=== PATIENT | female | born 1930 | race Caucasian/White ===

== ENCOUNTER → 2016-10-29 | Outpatient (CLI) | payer MEDICARE, OTHER ==
--- NOTE | 2016-10-29 13:04 | KCIC ---
Thoracic x-rays INDICATION: Back pain across chest. COMPARISON: None TECHNIQUE: 3 views of the thoracic spine FINDINGS: Thoracic spine is in normal anatomic alignment. No compression deformities. Large osteophytes are seen in the midthoracic spine with endplate sclerosis and significant loss of intervertebral disc height suggesting multilevel degenerative disc disease. Also noted are similar changes in the lower cervical spine. Heart is mildly enlarged in size. Visualized lungs are clear. IMPRESSION: Moderate to severe multilevel degenerative disc disease in the mid to lower thoracic spine. Electronically signed by: Claudio Kennedy DO (10/29/2016 1:00 PM) [place] [id number]
== END | disposition home or self-care (01) ==
LOC: KCIC 12:14
PROVIDERS: ATTEND Family Medicine
DX: M51.34 Other intervertebral disc degeneration, thoracic region (principal)
CPT/HCPCS: 72072

== ENCOUNTER → 2017-02-06 | Outpatient (CLI) | payer MEDICARE, OTHER ==
--- NOTE | 2017-02-06 14:35 | KCIC ---
INDICATION: Bilateral arm pain. Pain across back and breasts. Dizziness when standing. Neck pain extending to base of skull. TECHNIQUE: Sagittal T1, sagittal T2, sagittal STIR, axial T2, and axial T2 gradient sequences are provided. There is mild motion degradation. No comparison is available. FINDINGS: There is 2 mm of anterolisthesis at C3-C4. There is 2 mm of retrolisthesis at C6-C7. There is straightening of cervical lordosis. There is fatty replacement the endplates at several levels. There is mild edema in the endplates at C4-C5 and C5-C6. There is STIR hyperintensity in the cord at C6-C7 and at the level of C7. This is difficult to confirm on the axial series but believed to be a true finding. Mild cord hyperintensity at C3-C4 also is believed to be a true finding. Cervicomedullary junction is unremarkable. Allowing for motion degradation, degenerative findings will be estimated below: C2-C3: There is a small central protrusion. There is facet hypertrophy. There is no canal or foraminal compromise. C3-C4: There is a disc osteophyte complex and uncinate process spurring. There is mild canal stenosis, midline AP diameter 9 mm. Foraminal narrowing is probably mild to moderate on the left and moderate to severe on the right. C4-C5: There is a disc osteophyte complex and uncinate process spurring. There is mild to moderate canal stenosis and foraminal narrowing bilaterally appears at least moderate. Midline AP diameter of the thecal sac is 8 mm. C5-C6: There is a disc osteophyte complex. There is uncinate process spurring which is bilateral but greater on the right. There is mild to moderate canal stenosis, midline AP diameter of the thecal sac 8 mm. There is [id number] bilateral foraminal narrowing. C6-C7: Disc osteophyte complex is noted. Uncinate process spurring is much greater on the left. Midline AP diameter of the thecal sac is narrowed to 7-8 mm, moderate. Foraminal narrowing appears high-grade and greater on the left. C7-T1: Disc bulge and facet hypertrophy are noted, there may be mild foraminal narrowing. IMPRESSION: 1. Multilevel degenerative changes in the cervical spine. Several levels of canal stenosis and foraminal narrowing, as estimated above. 2. Areas of cord hyperintensity at C6-C7 and C3-C4 may represent edema or myelomalacia. 3. Mild motion degradation. Electronically signed by: Saturnino Whitman MD (02/06/2017 2:32 PM) [id number]
== END | disposition home or self-care (01) ==
LOC: KCIC MRI 12:25
PROVIDERS: ATTEND Family Medicine
DX: M48.02 Spinal stenosis, cervical region (principal); M50.21 Other cervical disc displacement, high cervical region; M25.78 Osteophyte, vertebrae; R42 Dizziness and giddiness; M79.601 Pain in right arm; M79.602 Pain in left arm
CPT/HCPCS: 72141

== ENCOUNTER → 2018-08-18 | Outpatient (CLI) | payer MEDICARE, OTHER ==
--- NOTE | 2018-08-18 14:09 | KCIC ---
MRI Lumbar Spine without contrast History: Radicular leg pain, chronic low back pain into the right lower extremity Technique: Multiplanar, multi sequential noncontrast MR imaging was performed of the lumbar spine. Comparison: None Findings: There is some motion degradation. Lumbar vertebral body stature is maintained. There is grade 1 anterior spondylolisthesis L4-5 and L3-4 and to lesser degree at L2-3. There is fairly advanced degenerative disc disease L2-3 and L3-4 and to a somewhat lesser degree at L4-5, minimally at L5-S1 and L1-2. There is focus of marrow signal abnormality of the T12 vertebral body hyperintense on T2 and STIR sequences, partially hyperintense on the T1 sequence, greatest dimension about 1.2 cm CC by 1.2 cm AP by 1 cm transverse. There is degenerative endplate change L2-3 and L3-4, very minimally L1-2 and L4-5. Conus terminates at L1-L2. There is nonspecific edema of the posterior subcutaneous fat of the lower back, no focal fluid collection. There is very mild dextroscoliosis of lumbar spine. T10-11: This level was not included on the axial images. Facet degenerative change contributes to likely mild right and possible moderate left neural foramina compromise. There is a shallow posterior protrusion at this level slightly indenting the ventral thecal sac. T11-12: Spinal canal and neural foramina are adequate. There is buckling of the ligamentum flavum greater on the right. There is facet degenerative change. T12-L1: There is facet degenerative change. Neural foramina and spinal canal are adequate. L1-L2: There is broad posterior bulge. There is mild to moderate buckling of the ligament flavum and facet degenerative change. There is mild narrowing of the far lateral recesses greater on the left. Neural foramina are not significantly narrowed. L2-L3: There is some buckling of the nerve roots at the L2 level. There is bulge/broad protrusion. There is moderate buckling of the ligamentum flavum and facet hypertrophic change. There is mild prominence of posterior epidural fat centrally. Combination of findings results in mild to moderate spinal stenosis, left greater than right lateral recess stenosis, some preserved subarachnoid space. There is mild narrowing greater distally of the right neural foramen in part by disc osteophyte complex, mild to moderate narrowing on the left. L3-L4: There is severe facet degenerative change and moderate buckling of the ligamentum flavum. There is mild prominence of posterior epidural fat centrally. There is mild partial uncovering of the posterior aspect of the disc and superimposed broad posterior bulge. Combination of findings results in fairly severe spinal stenosis, lateral recess stenosis bilaterally with contact descending L4 nerve roots, limited preserved central subarachnoid space. There is buckling of the nerve roots above this level. There is moderate to severe narrowing of the left neural foramen with contact exiting left L3 nerve root, mild overall narrowing on the right. L4-L5: There is moderate to severe facet degenerative change, also fairly severe buckling of the ligamentum flavum greater on the left. There is partial uncovering of the posterior aspect of the disc due to spondylolisthesis. There is fairly severe narrowing of the left lateral recess with contact descending left L5 nerve root, moderate narrowing of the central canal and mild narrowing of the right lateral recess. There is mild left and moderate right neural foramina compromise with contact undersurface exiting L4 nerve roots greater on the right. L5-S1: There is mild to moderate right and minimal left facet degenerative change. There is minimal buckling of the ligamentum flavum. Spinal canal is overall adequate. Neural foramina are adequate. Impression: 1. There is fairly severe spinal stenosis L3-4, lateral recess stenosis bilaterally with contact descending L4 nerve roots. There is a lesser degree of left lateral recess and central canal stenosis at L4-5, also mild to moderate spinal stenosis with lateral recess stenosis bilaterally at L2-3 as described. 2. There is moderate to severe narrowing of the left L3-4 neural foramen, moderate narrowing on the right at L4-5 and on the left at L2-3, lesser degree of narrowing at other levels as described. 3. There is multilevel degenerative disc disease greatest L2-3 through L4-5. There is multilevel mild abnormal alignment as stated, multilevel facet degenerative change. 4. There is a focus of nonspecific signal abnormality of the T12 vertebral body, somewhat atypical hemangioma favored especially if there is no history or suspicion for malignancy. Electronically signed by: Oiv Sweeney MD (08/18/2018 2:06 PM) [id number]
== END | disposition home or self-care (01) ==
LOC: KCIC MRI 12:30
PROVIDERS: ATTEND Family Medicine
DX: M51.16 Intervertebral disc disorders with radiculopathy, lumbar region (principal); M43.16 Spondylolisthesis, lumbar region; M51.24 Other intervertebral disc displacement, thoracic region; M48.061 Spinal stenosis, lumbar region without neurogenic claudication; M47.26 Other spondylosis with radiculopathy, lumbar region; M47.818 Spondylosis without myelopathy or radiculopathy, sacral and sacrococcygeal region; M51.37 Other intervertebral disc degeneration, lumbosacral region; M89.38 Hypertrophy of bone, other site; M25.78 Osteophyte, vertebrae; D18.09 Hemangioma of other sites; G89.29 Other chronic pain
CPT/HCPCS: 72148

== ENCOUNTER → 2018-10-07 | Outpatient (CLI) | payer MEDICARE, OTHER ==
[~2018-10-07] MED LIST: BENA1TAB6 PO; CELE200C PO; CYAN-25 PO; GABA-585 PO; GABA-689 PO; IOHEXOL 180 MG/ML 10 ML VIAL. ONE; methylPREDNISolone ACETATE 40 MG/ML VIAL. ONE; methylPREDNISolone ACETATE 80 MG/ML VIAL. ONE
--- NOTE | 2018-10-07 22:55 | PAIN ---
DATE OF SERVICE: 10/07/2018 INITIAL CONSULTATION FOR PAIN CLINIC CHIEF COMPLAINT: Low back and right greater than left lower extremity pain. HISTORY OF PRESENT ILLNESS: This is an 87-year-old female who presents with history of pain in the low back for about 9 months, not a result of any specific injury or action that she is aware of, but it has been painful and feels that she is off balance significantly secondary to weakness in her legs, especially on the right side. The patient reports it is worse with walking, standing, changing positions, worse with getting up from a sitting position, better with sitting or lying down, does not hurt much when she is sitting or lying down, does not awaken her from sleep at night, does not affect her bowel or bladder control, but does affect her ability to walk fairly significantly. She is using a cane to ambulate. The patient reports still some significant loss of balance and instability feeling when she is walking, especially in the right leg. The patient reports a creepy, crawly sensation as well. The patient describes the pain as sharp and shooting in the back, numbness and radiating pain in the legs, intermittent in intensity, but always present when she is on her feet. The patient did have MRI scan of the lumbar spine showing a fairly severe spinal stenosis at L3-L4, lateral recess stenosis bilaterally contacted any L4 nerve roots, less severe left lateral recess and central canal stenosis at L4-L5 with [id number] spinal stenosis and lateral recess stenosis bilaterally at L2-3. PAST MEDICAL HISTORY: Significant for type 2 diabetes, non-insulin dependent; hearing loss; cataracts; skin cancer; dizziness; headaches; arthritis. PREVIOUS SURGERY: Includes skin cancer excisions and cataract extractions. CURRENT MEDICATIONS: Include insulin, benazepril, vitamin B12, gabapentin, and Celebrex. ALLERGIES: The patient has no known drug allergies. FAMILY HISTORY: Significant for high blood pressure and diabetes. SOCIAL HISTORY: The patient does not smoke, does not drink alcohol, does not use any illegal, illicit or recreational drugs. Lives locally in [place] and is currently retired. REVIEW OF SYSTEMS: The patient's review of systems is positive for those items mentioned in history of present illness. All systems reviewed and otherwise negative. It is complete, full and well documented on the patient's chart. PHYSICAL EXAMINATION: VITAL SIGNS: The patient's blood pressure is 171/77, pulse 73, respirations 18, temperature 97.4 degrees Fahrenheit, 4 feet and 8 inches, weight is 182 pounds stated. GENERAL: The patient is awake, alert, oriented, appropriate, very pleasant demeanor. HEENT: Shows normocephalic, atraumatic. Extraocular movements are intact and symmetrical. Oral cavity: Mucous membranes moist and pink. Dentition is intact. NECK: Shows anterior throat supple without palpable lymphadenopathy noted. Swallow reflex is symmetrical. CHEST: Shows normal on inspection. Breath sounds clear to auscultation bilaterally. HEART: Shows S1, S2 clear. No murmurs auscultated. ABDOMEN: Soft, nontender, nondistended. No palpable organomegaly is noted. No rebound or guarding demonstrated. BACK: Shows spine grossly in the midline. Normal appearing thoracic kyphosis and some minor flattening of lordotic curvature. Lumbar paraspinous muscle shows symmetrical on inspection, on palpation shows some moderate tenderness throughout the upper, middle and lower distribution of the paraspinous musculature diffusely without specific radiation or trigger points. The patient shows no specific tenderness with palpation over the spinous processes or the sacroiliac regions bilaterally. The patient has good rotational motion of lumbar spine, greater than 10 degrees right and left as well as extension greater than 10 degrees, forward flexion at 40 degrees without significant increase in pain. EXTREMITIES: The patient's lower extremities show deep tendon reflexes 1+ and the patellar and tendo calcaneus tendons are equal. Motor exam is approximately 4 on a scale of 5, but symmetrical with dorsiflexion, extension, right and left, as well as quadriceps and hamstring flexion, right and left. Peripheral pulses are 1+ posterior tibial. No peripheral edema is noted. The patient's straight leg raise is noted to be positive bilaterally at about 35-40 degrees with some pain in the low back into the posterior lateral thigh, worse on the right than the left, but present bilaterally with straight leg raise. Gaenslen's and Bala's maneuvers are grossly negative bilaterally. The patient is able to stand and requires some assistance with getting up from the chair using a cane in her right hand, which she ambulates, has a significant favoring limp gait favoring the right lower extremity. SKIN: The patient's skin shows warm and dry, good turgor. No edema. No sores, rashes or bruising throughout. IMPRESSION: 1. This is an 87-year-old female with approximate 9-month history of increasing pain, low back, right greater than left lower extremity in a radicular fashion. 2. MRI scan of the lumbar spine is noted. 3. Arthritis. 4. History of skin cancer. 5. Diabetes. PLAN: Options were discussed with the patient including conservative medical management, physical therapy, interventional techniques. She would like to pursue interventional techniques. We discussed a lumbar epidural steroid injection using description as well as anatomical models to describe the procedure. Risks were then discussed including, but not limited to bleeding, infection, possibility of epidural hematoma, subsequent neurological compromise, dural puncture, headaches, spinal cord and/or nerve damage, side effects of steroid medication and poor results regarding pain control. The patient understands and wished to proceed. The patient will return to clinic in approximately 2 weeks for followup. She was counseled on return appointment, activity level and side effects to be aware of. DIAGNOSES: Lumbar radiculopathy with lumbar degenerative disk disease and lumbar spinal stenosis. PROCEDURE: Lumbar epidural steroid injection, translaminar approach at L4-L5 level using C-arm fluoroscopic guidance under sterile prep and drape using local anesthetic. MEDICATION INJECTED: A total of 120 mg Depo-Medrol plus 10 mL of preservative-free normal saline and 2 mL of contrast. CONDITION AT DISCHARGE: Stable. The patient tolerated the procedure well, had no complications. JMAES TORO MD DR: ANUJ/uyen JOB#: [id number] / [id number]
== END ==
LOC: PNCL 10:47
PROVIDERS: ATTEND Anesthesiology
DX: M51.16 Intervertebral disc disorders with radiculopathy, lumbar region (principal); M48.061 Spinal stenosis, lumbar region without neurogenic claudication; E11.9 Type 2 diabetes mellitus without complications; Z85.828 Personal history of other malignant neoplasm of skin; Z98.42 Cataract extraction status, left eye; Z98.41 Cataract extraction status, right eye; Z98.890 Other specified postprocedural states; Z79.84 Long term (current) use of oral hypoglycemic drugs; Z96.1 Presence of intraocular lens
CPT/HCPCS: 62323; J1030; J1040; Q9965

== ENCOUNTER → 2018-10-22 | Outpatient (CLI) | payer MEDICARE, OTHER ==
[~2018-10-22] MED LIST changes: -IOHEXOL 180 MG/ML 10 ML VIAL. ONE; -methylPREDNISolone ACETATE 40 MG/ML VIAL. ONE; -methylPREDNISolone ACETATE 80 MG/ML VIAL. ONE
--- NOTE | 2018-10-23 01:52 | PAIN ---
DATE OF SERVICE: 10/22/2018 PROGRESS NOTE FOR PAIN CLINIC DIAGNOSES: Lumbar radiculopathy with lumbar degenerative disk disease and lumbar spinal stenosis. HISTORY OF PRESENT ILLNESS: The patient is an 87-year-old female who returns for followup status post lumbar epidural steroid injection x 1. The patient reports about 75% improvement in the pain in her low back and bilateral lower extremities, right greater than left. The patient reports still some pain in her right leg, but only very minimal and the only time she has had pain essentially is when she wakes up in the morning for the first 30 minutes when she is up and around a bit. The patient reports otherwise she is doing very well, has increased her activity, greater distance walking, doing household activities, traveling with greater ease and comfort. The patient reports it awakens her from sleep rarely, very much decreased pain with sitting or lying down, walking and standing. She is able to perform much better, much more successfully and much more comfortably. The patient reports the pain is a 7 on a scale of 10 at its worst in the past week, 5 on average, 5 at its least and is a 5 today. The patient reports it is stabbing pain that is there usually just in the morning. The patient reports no new motor or sensory deficits, no new bowel or bladder incontinence or other complaints. PHYSICAL EXAMINATION: VITAL SIGNS: The patient's blood pressure is 122/46, pulse 87, respirations 18, temperature 98.2 degrees Fahrenheit, height is 4 feet 8 inches, weight is 182 pounds. GENERAL: The patient is awake, alert, oriented, appropriate, very pleasant demeanor. HEENT: Shows normocephalic, atraumatic. Extraocular movements are intact and symmetrical. The patient wears eye glasses. Oral cavity: Mucous membranes moist and pink. Dentition is intact. NECK: Shows anterior throat supple without palpable lymphadenopathy noted. Swallow reflex symmetrical. CHEST: Shows normal on inspection. Breath sounds are clear bilaterally. BACK: Shows spine grossly in the midline. Lumbar paraspinous muscle shows symmetrical on inspection, on palpation shows some moderate tenderness, but only diffusely in the middle and lower distribution of paraspinous muscles without radiation. EXTREMITIES: Lower extremities show deep tendon reflexes at 1+ in the patellar and tendo calcaneus tendons. Motor exam is approximately 4 on a scale of 5, but equal and symmetrical dorsiflexion, extension, quadriceps and hamstring flexion. Peripheral pulses are 1+ posterior tibia. No peripheral edema is noted bilaterally. Options were discussed with the patient. The patient's old chart was reviewed as well as her current medication regimen updated. Current review of systems updated today as well. We will hold on any further injections at this time as the patient is doing quite a bit better. Encouraged to increase activity as tolerated. If the pain begins to return, she will contact the office on as needed basis. At this time, continue with stretching and strengthening exercises as well. JAMES TORO MD DR: ANUJ/uyen JOB#: [id number] / [id number]
== END | disposition home or self-care (01) ==
LOC: PNCL 12:43
PROVIDERS: ATTEND Anesthesiology
DX: M51.16 Intervertebral disc disorders with radiculopathy, lumbar region (principal); M48.061 Spinal stenosis, lumbar region without neurogenic claudication
CPT/HCPCS: G0463

== ENCOUNTER → 2018-11-10 | Outpatient (CLI) | payer MEDICARE, OTHER ==
[~2018-11-10] MED LIST changes: +IOHEXOL 180 MG/ML 10 ML VIAL. ONE; +methylPREDNISolone ACETATE 40 MG/ML VIAL. ONE; +methylPREDNISolone ACETATE 80 MG/ML VIAL. ONE
--- NOTE | 2018-11-10 22:08 | PAIN ---
DATE OF SERVICE: 11/10/2018 PROGRESS NOTE FOR PAIN CLINIC DIAGNOSES: Lumbar radiculopathy with lumbar degenerative disk disease and lumbar spinal stenosis. HISTORY OF PRESENT ILLNESS: The patient is an 87-year-old female who returns for followup status post lumbar epidural steroid injection x 1. She did very well after the first injection about 75% improvement. We had held off any other injections, the first was in 10/07/2018. The patient returns now reporting the pain is beginning to increase again in the low back into the bilateral lower extremities. The patient reports no new motor or sensory deficits; however, no new changes, but increasing pain with time and with activity. The patient reports it is a 9 on a scale of 10 at its worst over the past week, 7 on average, 3 at its least and is a 7 today. The patient reports it is tingling, burning, sharp, shooting across the back into the lower extremities, mostly in lateral thighs, anterior thighs, medial knees and across the low back bilaterally. The patient reports it is radiating, becoming more intense, but is still on and off in intensity, worse with walking, standing, changing positions, better with sitting or lying down, but has been waking her from sleep over the past few days about every 3-4 hours. The patient reports no new motor or sensory deficits, no new bowel or bladder incontinence or other complaints. PHYSICAL EXAMINATION: VITAL SIGNS: The patient's blood pressure is 142/66, pulse 88, respirations are 18, temperature 98.2 degrees Fahrenheit, height is 48 inches. GENERAL: The patient is awake, alert, oriented, appropriate, very pleasant demeanor. HEENT: Shows normocephalic, atraumatic. Extraocular movements are intact and symmetrical. Oral cavity: Mucous membranes moist and pink. Dentition is intact. NECK: Shows anterior throat supple without palpable lymphadenopathy noted. Swallow reflex symmetrical. CHEST: Shows normal on inspection. Breath sounds clear to auscultation bilaterally. HEART: Shows S1, S2 clear. No murmurs auscultated. ABDOMEN: Soft, nontender, nondistended. No palpable organomegaly is noted. No rebound or guarding demonstrated. BACK: Significant for thoracic kyphosis and minor flattening of lumbar lordotic curvature. Lumbar paraspinous muscle shows symmetrical on inspection, on palpation shows some moderate tenderness diffusely bilaterally without radiation. EXTREMITIES: The patient's lower extremities show deep tendon reflexes 1+ in the patellar and tendo calcaneus tendons are equal. Motor exam is approximately 4 on a scale of 5, but symmetrical bilaterally. Peripheral pulses are 1+ posterior tibia. No peripheral edema is noted. Options were discussed with the patient. The patient's old chart was reviewed as her current medication regimen updated. Current review of systems updated today as well. We will proceed with a second in the series of lumbar epidural steroid injection today with fluoroscopic guidance. Risks were again discussed including, but not limited to bleeding, infection, possibility of epidural hematoma, subsequent neurological compromise, dural puncture, headaches, spinal cord and/or nerve damage, side effects of steroid medication and poor results regarding pain control. The patient understands and wished to proceed. The patient will return to clinic in approximately 2 weeks for followup. She was counseled on return appointment, activity level and side effects to be aware of. DIAGNOSIS: Lumbar radiculopathy with lumbar degenerative disk disease and lumbar spinal stenosis. PROCEDURE: Lumbar epidural steroid injection, translaminar approach at L4-L5 level using C-arm fluoroscopic guidance under sterile prep and drape using local anesthetic. MEDICATION INJECTED: The patient received a total of 120 mg Depo-Medrol plus 10 mL of preservative-free normal saline and 2 mL of contrast. CONDITION AT DISCHARGE: Stable. The patient tolerated the procedure well, had no complications. JAMES TORO MD DR: ANUJ/uyen JOB#: [id number] / [id number]
== END ==
LOC: PNCL 13:29
PROVIDERS: ATTEND Anesthesiology
DX: M51.16 Intervertebral disc disorders with radiculopathy, lumbar region (principal); M48.061 Spinal stenosis, lumbar region without neurogenic claudication
CPT/HCPCS: 62323; J1030; J1040; Q9965

== ENCOUNTER → 2018-11-24 | Outpatient (CLI) | payer MEDICARE, OTHER ==
[~2018-11-24] MED LIST changes: -IOHEXOL 180 MG/ML 10 ML VIAL. ONE; -methylPREDNISolone ACETATE 40 MG/ML VIAL. ONE; -methylPREDNISolone ACETATE 80 MG/ML VIAL. ONE
--- NOTE | 2018-11-25 02:12 | PAIN ---
DATE OF SERVICE: 11/24/2018 PROGRESS NOTE FOR PAIN CLINIC DIAGNOSIS: Lumbar radiculopathy with lumbar degenerative disk disease, lumbar spinal stenosis. HISTORY OF PRESENT ILLNESS: The patient is an 87-year-old female who returns for followup status post lumbar epidural steroid injection x 2. The patient reports about 60% improvement currently helping except for about an hour every morning when she gets up, the pain is very well controlled. The patient reports she is very pleased with her progress thus far, still has some pain in the low back and right lower extremity. Reports increased with activity in the morning, but once the day starts to get going for about an hour and hour and a half, the pain is subsided to a very significant and tolerable level. The patient reports she has been increase in her distance walking, sleeping better at night, doing work around the house as well as traveling with greater ease and comfort. The patient rates her pain as a 5 on a scale of 10 at its worst in the past week, 5 on average, 4 at least and is a 5 today. The patient reports dull and tingling in the low back radiating to the right lower extremity, posterolateral thigh, lateral anterior thigh, medial thigh. The patient reports no new motor or sensory deficits or other complaints. PHYSICAL EXAMINATION: VITAL SIGNS: The patient's blood pressure is 147/73, pulse 83, respirations 16, temperature is 98.2 degrees Fahrenheit, weight is 185 pounds. GENERAL: The patient is awake, alert, oriented, appropriate, very pleasant demeanor. HEENT: Head shows normocephalic, atraumatic. Extraocular movements are intact and symmetrical. Oral cavity: Mucous membranes moist and pink. Dentition is intact. NECK: Shows anterior throat supple. CHEST: Shows normal on inspection. Breath sounds clear bilaterally. HEART: Shows S1, S2 clear. No murmurs auscultated. ABDOMEN: Soft, nontender, nondistended. No palpable organomegaly is noted. No rebound or guarding demonstrated. BACK: Shows spine grossly in the midline. Normal appearing thoracic kyphosis and some minor flattening of lumbar lordotic curvature. Lumbar paraspinous muscle shows symmetrical on inspection. On palpation shows some moderate tenderness diffusely without specific radiation in the low lumbar distribution only but without atrophy, hypertrophy or any asymmetry. EXTREMITIES: The patient's lower extremities show deep tendon reflexes 1+ in the patellar and tendo calcaneus tendons. Motor exam is approximately 4 on a scale of 5, but equal and symmetrical dorsiflexion, extension, quadriceps and hamstring flexion. Peripheral pulses are 1+ posterior tibia. No peripheral edema is noted bilaterally. Options were discussed with the patient. The patient's old chart was reviewed as her current medication regimen updated. Current review of systems updated today as well. We will hold on any further injections at this time as the patient did quite a bit better. We would like to wait on any further injections. We discussed increasing activity as tolerated, maintain stretching exercises as well as walking daily. The patient will maintain this and will follow up at this time on an as needed basis. JAMES TORO MD DR: ANUJ/nts JOB#: [id number] / [id number]
== END | disposition home or self-care (01) ==
LOC: PNCL 13:38
PROVIDERS: ATTEND Anesthesiology
DX: M51.16 Intervertebral disc disorders with radiculopathy, lumbar region (principal); M48.061 Spinal stenosis, lumbar region without neurogenic claudication
CPT/HCPCS: G0463

== ENCOUNTER → 2019-01-07 | Outpatient (CLI) | payer MEDICARE, OTHER ==
--- NOTE | 2019-01-07 22:18 | PAIN ---
DATE OF SERVICE: 01/07/2019 DIAGNOSES: Lumbar radiculopathy with lumbar degenerative disk disease, lumbar spinal stenosis. HISTORY OF PRESENT ILLNESS: The patient is an 88-year-old female who returns for followup status post lumbar epidural steroid injection x 2, most recently on 11/10/2018. The patient reports she continues to do well with her low back pain and bilateral lower extremity pain, right greater than left. The patient reports she has been doing fairly well, has been fairly inactive. She reports that she has some significant pain about 2 weeks ago, but the pain as of yesterday became much more tolerable and much less intense. The patient reports that she would like to wait on any other injections as she is hoping that the pain relief will last longer. The patient reports when it is there, it is in the low back, across the bilateral lower back and hips into the lower extremities, mostly in the posterior lateral thigh, lateral anterior thigh, more again on the right than the left, but present bilaterally. The patient reports it can be as high as an 8 on a scale of 10 and it averages 7 and least is a 6 at the last week and today it is 6 on a scale of 10. The patient reports a shooting pain across the low back, can be constant, on and off in intensity though recently and she would like to wait on any further treatments. The patient reports no new motor or sensory deficits, no new bowel or bladder incontinence. She has been increasing her distance walking, has been having difficulty getting out of bed. When she is out and around, she does fairly well. The patient reports it can awaken her from sleep, but not most nights. It more affects her from ____ getting in a comfortable position once she asleep, though she is fairly comfortable through the rest of the night. PHYSICAL EXAMINATION: VITAL SIGNS: The patient's blood pressure is 197/106, pulse is 85, respirations are 18, temperature is 98.3 degrees Fahrenheit, height is 4 feet 8 inches, and weight is 188 pounds. GENERAL: The patient is awake, alert, oriented, appropriate, very pleasant demeanor. HEENT: Head shows normocephalic and atraumatic. Extraocular movements are intact and symmetrical. Oral cavity: Mucous membranes moist and pink. Dentition is intact. NECK: Shows anterior throat supple without palpable lymphadenopathy noted. Swallow reflex is symmetrical. CHEST: Shows normal on inspection. Breath sounds are clear bilaterally. HEART: Shows S1, S2 clear. No murmurs auscultated. ABDOMEN: Soft, obese, nontender, nondistended. No palpable organomegaly is noted. No rebound or guarding demonstrated. BACK: Shows spine grossly in the midline, normal-appearing cervical lordotic curvature, increased exaggerated thoracic kyphotic curvature and some mild flattening of lumbar lordotic curvature. Lumbar paraspinous muscle shows symmetrical on inspection. Palpation showed some mild tenderness throughout the upper, middle, and lower distribution of paraspinous muscles bilaterally, but only diffusely without radiation, without asymmetry, no trigger points, no radiation of pain, no atrophy or hypertrophy. The patient has good rotational motion of lumbar spine, both laterally as well as extension and flexion without significant pain reported. EXTREMITIES: Lower extremities show deep tendon reflexes 1+ in the patellar and tendo-calcaneus tendons. Motor exam is approximately 4 on a scale of 5, but equal and symmetrical with dorsiflexion, extension, quadriceps and hamstring flexion without significant increase in pain with quadriceps and hamstring flexion bilaterally. Peripheral pulses are 1+ posterior tibia. No peripheral edema bilaterally. Options were discussed with the patient. The patient's old chart was reviewed as her current medication regimen updated. Current review of systems updated today as well. We will hold on any further injections per her choice as she is doing quite a bit better here over the past few days. We would like to wait as she has had two injections already. We will have the patient maintain with stretching and strengthening exercises that she is doing as well as heat application in the low back as necessary. Also, we will give the patient a Medrol Dosepak to keep in case she needs it if the pain does flare up again like it did a few weeks ago, but again has since resolved and she will have this available. She was given instruction as well as side effects to be aware of with the medication and will follow up in approximately 1 month or as necessary if not sooner. JAMES TORO MD DR: ANUJ/uyen JOB#: [id number] / [id number]
== END | disposition home or self-care (01) ==
LOC: PNCL 12:24
PROVIDERS: ATTEND Anesthesiology
DX: M51.16 Intervertebral disc disorders with radiculopathy, lumbar region (principal); M48.061 Spinal stenosis, lumbar region without neurogenic claudication
CPT/HCPCS: G0463

== ENCOUNTER → 2019-02-19 | Outpatient (CLI) | payer MEDICARE, OTHER ==
[~2019-02-19] MED LIST changes: +IOHEXOL 180 MG/ML 10 ML VIAL. ONE; +methylPREDNISolone ACETATE 40 MG/ML VIAL. ONE; +methylPREDNISolone ACETATE 80 MG/ML VIAL. ONE
--- NOTE | 2019-02-20 00:03 | PAIN ---
DATE OF SERVICE: 02/19/2019 PROGRESS NOTE FOR PAIN CLINIC DIAGNOSES: Lumbar radiculopathy with lumbar degenerative disk disease and lumbar spinal stenosis. HISTORY OF PRESENT ILLNESS: The patient is an 88-year-old female who returns for followup status post lumbar epidural steroid injection x 2, last on 11/10/2018. The patient reports she did very well, about 75% improvement initially and then about 65% improvement after the second injection. We tried a Medrol Dosepak on her last visit, but she had some hot flashes when taking it the first day and discontinued it at that time. The patient returns today reporting significant pain in the low back and into the bilateral lower extremities, somewhat worse on the left than the right at this time. The patient reports no new motor or sensory deficits; however, no new bowel or bladder incontinence. Still some difficulty with walking, standing, changing positions. The patient reports it is a 9 on a scale of 10 at its worst, 9 on average and 6 at its least and is a 9 today. The patient reports it is aching, sharp, tight, becoming more constant in the low back and legs with walking and standing. We had delayed her injection today as she was doing much better on the last visit, but the pain returned about a week after that visit. The patient reports no new motor or sensory deficits, which has been waking her from sleep at night. No bowel or bladder incontinence. PHYSICAL EXAMINATION: VITAL SIGNS: The patient's blood pressure 158/70, pulse 84, respirations 16, temperature 98.0 degrees Fahrenheit, weight is 192 pounds. GENERAL: The patient is awake, alert, oriented, appropriate, very pleasant demeanor. HEENT: Shows normocephalic, atraumatic. Extraocular movements are intact and symmetrical. Oral cavity: Mucous membranes moist and pink. Dentition is intact. NECK: Shows anterior throat supple without palpable lymphadenopathy noted. Swallow reflex symmetrical. CHEST: Shows normal on inspection. Breath sounds clear to auscultation bilaterally. HEART: Shows S1, S2 clear. ABDOMEN: Obese, soft, nontender, nondistended. BACK: Shows spine grossly in the midline. Slight exaggeration of thoracic kyphosis and flattening of lumbar lordotic curvature. Lumbar paraspinous muscle shows symmetrical on inspection, on palpation shows some moderate tenderness diffusely bilaterally, but only diffusely without radiation. The patient has good rotational motion of lumbar spine, both laterally as well as extension and flexion. EXTREMITIES: Lower extremities show deep tendon reflexes 1+ in the patellar and tendo calcaneus tendons. Motor exam is approximately 4 on a scale of 5, but symmetrical dorsiflexion, extension, quadriceps and hamstring flexion equal bilaterally. Peripheral pulses are 1+. No peripheral edema is noted. Options were discussed with the patient. The patient's old chart was reviewed as her current medication regimen updated. Current review of systems updated today as well. We will proceed with a third in the series of lumbar epidural steroid injection today with fluoroscopic guidance. Risks were again discussed including, but not limited to bleeding, infection, possibility of epidural hematoma, subsequent neurological compromise, dural puncture, headaches, spinal cord and/or nerve damage, side effects of steroid medication and poor results regarding pain control. The patient understands and wished to proceed. The patient will return to clinic in approximately 2 weeks for followup. She was counseled on return appointment, activity level and side effects to be aware of. DIAGNOSES: Lumbar radiculopathy with lumbar degenerative disk disease, lumbar spinal stenosis. PROCEDURE: Lumbar epidural steroid injection, translaminar approach at L4-L5 level using C-arm fluoroscopic guidance under sterile prep and drape using local anesthetic. MEDICATION INJECTED: A total of approximately 30 mg Depo-Medrol and 3 mL of normal saline and 2 mL of contrast. It is noted that on injection of the contrast and the steroid normal saline mixture, the patient has significant pain in both of the lower extremities to the point where she demanded that the procedure to be stopped, also having difficulty holding still, making it difficult and unsafe to continue with the procedure. Needle was removed. Sterile bandage was applied. CONDITION AT DISCHARGE: Stable. The patient tolerated the procedure well other than the pain on injection and was discharged in good and stable condition under her own power. Ambulating with a cane in her right hand. JAMES TORO MD DR: ANUJ/uyen JOB#: [id number] / [id number]
== END ==
LOC: PNCL 13:23
PROVIDERS: ATTEND Anesthesiology
DX: M51.16 Intervertebral disc disorders with radiculopathy, lumbar region (principal); M48.061 Spinal stenosis, lumbar region without neurogenic claudication
CPT/HCPCS: 62323; J1030; J1040; Q9965

== ENCOUNTER → 2020-06-28 | Outpatient (CLI) | payer MEDICARE, OTHER ==
[~2020-06-28] MED LIST changes: -IOHEXOL 180 MG/ML 10 ML VIAL. ONE; -methylPREDNISolone ACETATE 40 MG/ML VIAL. ONE; -methylPREDNISolone ACETATE 80 MG/ML VIAL. ONE
--- NOTE | 2020-06-28 16:49 | KCIC ---
EXAM: Lumbar spine, flexion and extension. HISTORY: Pain. Fall. COMPARISON: None. FINDINGS: Frontal, lateral, bilateral oblique and flexion and extension views of the lumbar spine are obtained. There is dextroscoliosis centered at L2. There is grade 1 anterolisthesis of L4 and L5, me asuring 9 mm. There is grade 1 anterolisthesis of L3 on L4, measuring 5 mm. There is no change in lis thesis between flexion and extension. There is degenerative endplate remodeling with disc space narro wing and osteophytosis primarily at L3-L4. There is multilevel facet arthropathy. There is a moderate chronic appearing compression fracture of T12. IMPRESSION: 1. Moderate chronic appearing compression fracture of T12. 2. Lumbar scoliosis and multilevel listhesis, described above. 3. Multilevel degenerative change, primarily at L3-L4. Electronically signed by: Lauren Zelaya MD (06/28/2020 4:46 PM) [id number]
== END ==
LOC: KCIC 15:59
PROVIDERS: ATTEND Family Medicine
DX: S22.089A Unspecified fracture of T11-T12 vertebra, initial encounter for closed fracture (principal); M47.816 Spondylosis without myelopathy or radiculopathy, lumbar region; M43.16 Spondylolisthesis, lumbar region; W19.XXXA Unspecified fall, initial encounter; Y93.89 Activity, other specified; Y92.89 Other specified places as the place of occurrence of the external cause; Y99.8 Other external cause status
CPT/HCPCS: 72110